=== PATIENT | female | born 1980 | race African-American/Black ===

== ENCOUNTER 2018-03-03 22:03 | Inpatient (IN) | payer MEDICAID, OTHER ==
[~2018-03-03] VITALS: Ht 170.2 cm; Wt 90.7 kg
[2018-03-04] MEDS ORDERED: ACETAMINOPHEN 325MG TABLET PO STA (00:02)
[2018-03-04] MEDS ORDERED: SODIUM CHLORIDE 0.9% 1,000 ML IV ONE (00:02)
[2018-03-04] MEDS ORDERED: AZITHROMYCIN 500 MG in DEXT 5% WATER 250 ML IV ONE (00:15)
[2018-03-04] MEDS ORDERED: CEFTRIAXONE 1 G PREMIX 50 ML IV ONE (00:15)
[2018-03-04 00:36] LABS: CLARITY URINE CLEAR (CLEAR); COLOR URINE YELLOW (YELLOW); KETONES URINE NEGATIVE (NEGATIVE); LEUKOCYTE ESTERASE URINE NEGATIVE (NEGATIVE); NITRITE URINE NEGATIVE (NEGATIVE); OCCULT BLOOD URINE 2+ (NEGATIVE); PH URINE 6.5 (4.5-8.0); PROTEIN URINE NEGATIVE (NEGATIVE); SPECIFIC GRAVITY URINE 1.009 (1.005-1.030)
[2018-03-04 00:46] LABS: BASOPHILS % 0.5 % (0.0-2.0); EOSINOPHILS % 0.1 % (0.0-5.0); HEMATOCRIT. 36.6 % (36.0-48.0); HEMOGLOBIN. 12.2 g/dL (12.0-16.0); LYMPHOCYTES % 20.5 % (20.0-50.0); MEAN CORPUSCULAR HEMOGLOBIN 28.8 pg (28.0-32.0); MEAN CORPUSCULAR VOLUME 86.7 fL (81.0-99.0); MEAN PLATELET VOLUME 6.5 fl (7.4-10.4); MONOCYTES % 6.9 % (2.0-8.0); PLATELET 365 x1000/uL (130-400); RED BLOOD CELL COUNT 4.22 mill/uL (4.2-5.4); RED CELL DISTRIBUTION WIDTH 12.2 % (11.6-14.6)
[2018-03-04 00:53] LABS: INR 1.2; PROTHROMBIN TIME 12.2 sec (9.4-11.6)
[2018-03-04 00:59] LABS: CHLORIDE 95 mEq/L (98-107)
[2018-03-04] MEDS ORDERED: POTASSIUM CHLORIDE 20MEQ TABLET SR PO NR (01:15)
[2018-03-04] MEDS ORDERED: ACETAMINOPHEN 325MG TABLET PO PRN (02:15)
[2018-03-04] MEDS ORDERED: ONDANSETRON HCL 4MG/2ML VIAL IV PRN (02:15)
[2018-03-04] MEDS ORDERED: DIPHENHYDRAMINE 50MG/ML VIAL IV PRN (02:15)
[2018-03-04] MEDS ORDERED: IPRATROPIUM/ALBUTEROL 0.5-3(2.5)MG/3ML NEB INH PRN (02:15)
[2018-03-04] MEDS ORDERED: MAGNESIUM/ALUMINUM HYDROXIDE/SIMETHICONE 30ML UDC PO PRN (02:15)
[2018-03-04] MEDS ORDERED: GUAIFENESIN 200MG/10ML SUGAR FREE UDC PO PRN (02:15)
[2018-03-04 12:00] VITALS: BP_SYST 108; BP_SYST 94; BP_DIAS 51; BP_DIAS 76
[2018-03-04] MEDS: LEVOFLOXACIN 500MG PREMIX 100 ML IV SCH (13:43)
[2018-03-04] MEDS: SODIUM CHLORIDE 0.9% INJ 3ML FLUSH IVF SCH ×2 (13:52→22:10)
[2018-03-04] MEDS: GUAIFENESIN 600MG ER TABLET PO SCH ×2 (13:55→21:52)
[2018-03-04 16:00] VITALS: BP 103/60
[2018-03-04 20:00] VITALS: BP 111/68
[2018-03-04] MEDS ORDERED: ZOLPIDEM TARTRATE 5MG TABLET PO PRN (21:00)
[2018-03-05] VITALS: BP 103/62
[2018-03-05 04:00] VITALS: BP 96/59
[2018-03-05] MEDS: SODIUM CHLORIDE 0.9% INJ 3ML FLUSH IVF SCH (06:00)
[2018-03-05] MEDS: GUAIFENESIN 600MG ER TABLET PO SCH (09:10)
[2018-03-05 09:11] VITALS: BP 105/67
[2018-03-05] MEDS: LEVOFLOXACIN 500MG PREMIX 100 ML IV SCH (11:48)
[2018-03-05 12:00] VITALS: BP 107/78
== END 2018-03-05 13:25 | disposition left against medical advice (07) | DRG 720 ==
LOC: ER 22:03 → 6EST 03-04 01:07 → EDBEDREQ 03-04 01:10 → EDBEDREQTM 03-04 01:10 → EDBEDREQSVC 03-04 01:10 → CANRESERV 03-04 07:01 → ENRESERV 03-04 07:01 → EDBEDREQSVC 03-04 07:33 → ENRESERV 03-04 10:36
PROVIDERS: ADMIT Internal Medicine; ATTEND Internal Medicine
DX: A41.9 Sepsis, unspecified organism (principal); J96.00 Acute respiratory failure, unspecified whether with hypoxia or hypercapnia; E43 Unspecified severe protein-calorie malnutrition; J18.1 Lobar pneumonia, unspecified organism; E87.6 Hypokalemia; F12.90 Cannabis use, unspecified, uncomplicated; F17.200 Nicotine dependence, unspecified, uncomplicated; J98.11 Atelectasis
CPT/HCPCS: 36415; 71045; 80053; 81003; 83605; 85025; 85610; 87040; 87086; 87804; 93005; 96365; 96366; 96367; 99285; C1893; J0456; J0696; J1956; J7030; J7040; J7060

== ENCOUNTER 2023-12-12 23:02 | Emergency (ER) | payer MEDICAID, OTHER ==
[~2023-12-12] VITALS: Ht 175.3 cm; Wt 90.0 kg
[2023-12-12 23:03] VITALS: BP 124/78; PULSE 101; RESP 16; TEMP 97.9; O2SAT 98
[2023-12-12] MEDS ORDERED: FAMOTIDINE 20MG/2ML VIAL IV ONE (23:15)
[2023-12-12] MEDS ORDERED: SODIUM CHLORIDE 0.9% 1,000 ML IV ONE (23:15)
[2023-12-12] MEDS ORDERED: ONDANSETRON HCL 4MG/2ML INJ IV ONE (23:15)
[2023-12-12] MEDS ORDERED: MAGNESIUM/ALUMINUM HYDROXIDE/SIMETHICONE 30ML UDC PO ONE (23:15)
[2023-12-12 23:44] LABS: BASOPHILS % 0.7 % (0.0-2.0); EOSINOPHILS % 1.1 % (0.0-5.0); HEMATOCRIT. 33.3 % (36.0-48.0); HEMOGLOBIN. 10.5 g/dL (12.0-16.0); LYMPHOCYTES % 18.4 % (20.0-50.0); MEAN CORPUSCULAR HEMOGLOBIN 27.5 pg (28.0-32.0); MEAN CORPUSCULAR HGB CONC 31.7 g/dL (31.0-37.0); MEAN CORPUSCULAR VOLUME 86.8 fL (81.0-99.0); MONOCYTES % 3.5 % (2.0-8.0); NEUTROPHILS % 76.3 % (40.0-76.0); PLATELET 124 x1000/uL (130-400); RED BLOOD CELL COUNT 3.84 mill/uL (4.2-5.4); RED CELL DISTRIBUTION WIDTH 14.6 % (11.6-14.6); WHITE BLOOD COUNT 10.1 x1000/uL (4.5-11.0)
[2023-12-13 00:01] LABS: ALANINE AMINOTRANSFERASE 17 IU/L (10-49); ALBUMIN 3.6 g/dL (3.2-4.8); ASPARTATE AMINOTRANSFERASE 28 IU/L (<34); BILIRUBIN TOTAL 2.2 mg/dL (0.1-1.0); CARBON DIOXIDE 19 mEq/L (21-32); CHLORIDE 110 mEq/L (98-107); CREATININE 0.9 mg/dL (0.6-1.0); GLUCOSE 92 mg/dL (70-105); POTASSIUM 3.6 mEq/L (3.5-5.1); PROTEIN TOTAL 7.4 g/dL (6.0-8.3); SODIUM 141 mEq/L (136-145); TROPONIN I HIGH SENSITIVITY 17 ng/L (3.0-34); UREA NITROGEN BLOOD 16 mg/dL (9-23)
[2023-12-13 00:09] LABS: HCG SCREEN NEGATIVE
[2023-12-13 00:14] LABS: ETHANOL BLOOD < 10 mg/dL (<10)
[2023-12-13] MEDS ORDERED: ONDA4TAB50 MT (02:58)
[2023-12-13] MEDS ORDERED: FAMO-135 MT (02:58)
== END 2023-12-13 04:26 | disposition home or self-care (01) ==
LOC: ER 23:02
DX: K52.9 Noninfective gastroenteritis and colitis, unspecified (principal); I10 Essential (primary) hypertension
CPT/HCPCS: 80053; 80320; 84703; 83690; 85025; 84484; 36415; 99283; J2405; J7030; J3490; G0480